=== PATIENT | male | born 1940 | race Two or more races ===

== ENCOUNTER 2020-10-01 23:43 | Emergency (ER) | payer MEDICARE, MEDICAID ==
[~2020-10-01] VITALS: Ht 172.7 cm; Wt 78.8 kg
[2020-10-02] MEDS ORDERED: OMNIPAQUE 350 MG/ML, 100ML BOTTLE ONE (00:30)
[2020-10-02] MEDS ORDERED: SODIUM CHLORIDE FLUSH 10ML SYR IVF ONE (00:30)
--- NOTE | 2020-10-02 00:30 | NUR ---
PATIENT RESTING IN BED. STEADY GAIT TO BATHROOM. PATIENT DENIES PAIN AT THIS TIME. STATES "ITS GONE NOW". REPORTS "I HAVE NEVER SEEN HIM IN THAT MUCH PAIN BEFORE". CALL P[facility]YA IN REACH. SAFETY MAINTAINED. WILL CONTINUE TO MONITOR.
[2020-10-02 01:03] LABS: MICROSCOPIC AUTO
[2020-10-02 01:10] LABS: ALBUMIN 4.3 g/dL (3.4-5.0); ANION GAP 4 mmol/L (5-15); BASOPHILS % (AUTO) 0 % (0-1); CALCIUM 8.7 mg/dL (8.5-10.1); CHLORIDE 107 mmol/L (98-107); EOSINOPHILS % (AUTO) 1 % (1-7); LYMPHOCYTES % (AUTO) 10 % (22-44); MD NO; MEAN CORPUSCULAR HEMOGLOBIN 33.2 pg (27.5-34.5); MEAN CORPUSCULAR HGB CONC 34.5 g/dL (33.2-36.2); MEAN PLATELET VOLUME 8.6 fL (7.4-10.4); MONOCYTES % (AUTO) 6 % (2-9); NEUTROPHILS % (AUTO) 84 % (42-75); PLATELET COUNT 237 x10^3/uL (130-400); RED BLOOD COUNT 3.98 x10^6/uL (4.38-5.82); RED CELL DISTRIBUTION WIDTH 12.6 % (9.4-14.8)
[2020-10-02 01:15] LABS: ALANINE AMINOTRANSFERASE 22 U/L (12-78); ALKALINE PHOSPHATASE 98 U/L (45-117); BILIRUBIN,TOTAL 0.4 mg/dL (0.2-1.0); CREATININE 1.25 mg/dL (0.7-1.3); TOTAL PROTEIN 7.6 g/dL (6.4-8.2)
[2020-10-02 01:30] VITALS: BP 157/47
--- NOTE | 2020-10-02 01:30 | NUR ---
PATIENT DENIES PAIN. CT CALLED TO NOTIFY THEM THAT LABS HAVE RESULTED AND PATIENT READY FOR IMAGINING. CALL PANDYA IN REACH. SAFETY MAINTAINED. SPOUSE REMAINS AT BEDSIDE
--- NOTE | 2020-10-02 01:54 | NUR ---
PATIENT RETURNED FROM CT
--- NOTE | 2020-10-02 02:50 | NUR ---
DISCHARGE INSTRUCTIONS REVIEWED WITH PATIENT. NO FURTHER QUESTIONS. [facility] IV REMOVED PER DC PROTOCOL. NO ACTIVE BLEEDING ON DC. ALL PERSONAL BELONGINGS WITH PATIENT. VS REMIAN STABLE.
== END 2020-10-02 03:04 | disposition home or self-care (01) ==
LOC: ED 10-02 02:15
DX: K40.91 Unilateral inguinal hernia, without obstruction or gangrene, recurrent (principal); R10.31 Right lower quadrant pain; R10.32 Left lower quadrant pain; I10 Essential (primary) hypertension; E78.5 Hyperlipidemia, unspecified; Z90.89 Acquired absence of other organs
CPT/HCPCS: 36415; 74177; 80053; 81001; 83690; 85025; 99285; Q9967